=== PATIENT | male | born 1965 | race Caucasian/White ===

== ENCOUNTER 2016-08-10 14:30 | Inpatient (IN) ==
--- NOTE | 2016-08-10 16:31 | Emergency Department Note ---
Disposition Clinical Impression: Exertional dyspnea, Hypoxia, Pedal edema, Sleeps in sitting position due to orthopnea Disposition: Admitted As Inpatient Condition: Fair Referrals: Scout Alicea DO [Primary Care Provider] - Forms: ED Satisfaction Letter Time of Disposition: 18:47 SOB HPI - General Chief Complaint: ED Shortness of Breath/Dyspnea Stated Complaint: Bilateral leg swelling, LENI Time Seen by Provider: 08/10/16 16:15 Source: patient Limitations: no limitations Nursing Notes Reviewed: Yes Vital Signs Reviewed: Yes - History of Present Illness Patient's a 50-year-old male past medical history for sleep apnea and asthma presents with shortness of breath worsening over the past 2 weeks. Patient reports dyspnea on exertion after 8 steps, orthopnea, and bilateral lower extremity edema times one week. Patient has no prior cardiac history but patient admits to being a chronic user of crack and cocaine last used 2 years ago currently on Suboxone treatment by Dr. Jose rand. Patient smokes half pack a day patient admits to having a cough for the past 4 weeks as well that has not gone away. Patient reports pleuritic chest pain and pain in both legs with swelling - Related Data Home Medications Medication Instructions Recorded Confirmed Amlodipine 05/11/15 Atenolol 05/11/15 Atorvastatin 05/11/15 Gabapentin 05/11/15 Nexium 05/11/15 05/11/15 Previous Rx's Medication Instructions Recorded Ibuprofen [Motrin] 800 mg PO Q8HR #30 tablet 05/11/15 TraMADol [Ultram] 50 mg PO QID PRN #20 tablet 05/11/15 Allergies Allergy/AdvReac Type Severity Reaction Status Date / Time No Known Allergies Allergy Verified 05/11/15 18:53 All systems ED: reviewed and negative except as stated. Constitutional: Reports: chills, weakness. Denies: fever ENT ED: Reports: congestion Respiratory: Reports: cough, dyspnea, wheezes. Denies: sputum production Gastrointestinal: Reports: as per HPI. Denies: abdominal pain, nausea, vomiting , diarrhea Past Medical History - Past Medical History Attestation: Yes The following information was validated with the patient. Source: patient, obtained from family Medical history: Reports: hypertension - Social History Smoking Status: Current every day smoker Smokeless Tobacco Status: No Alcohol use: Reports: none Drug use: Reports: none Physical Exam Vital Signs Temperature 98.1 F 08/10/16 14:43 Pulse Rate 59 08/10/16 14:43 Respiratory Rate 18 08/10/16 14:43 Blood Pressure 122/67 08/10/16 14:43 O2 Sat by Pulse Oximetry 94 08/10/16 14:43 Temperature 98.1 F 08/10/16 14:43 Pulse Rate 59 08/10/16 14:43 Respiratory Rate 18 08/10/16 14:43 Blood Pressure 122/67 08/10/16 14:43 O2 Sat by Pulse Oximetry 94 08/10/16 14:43 Oxygen Delivery Oxygen Delivery Room Air -General Appearance: Patient is a 50-year-old very heavyset man sitting up in bed alert and oriented 3 to GCS of 15 in no acute distress, patient sitting comfortably -Neurological exam: Cranial nerves II-12 intact, no focal deficits observed, strength equal 5/5 bilaterally in upper and lower extremities. - Head Head exam: atraumatic, normocephalic, normal inspection - Eye Eye exam: Present: normal appearance, PERRL, EOMI, negative for scleral icterus negative for conjunctival pallor - ENT ENT exam: normal exam, normal oropharynx, mucous membranes moist - Neck Neck exam: Present: normal inspection, full ROM, trachea midline, negative JVD - Chest Chest inspection: Present: Patient has bilateral equal rise and fall of chest wall. Non-tender to palpation. - Respiratory Respiratory exam: Lung sounds distant with diminishing the lower lung martines bilaterally, wheezing and rales heard. Patient has discomfort with deep inspiration Cardiovascular Cardiovascular exam: Present: irregular rate, normal rhythm, normal heart sounds , without murmurs rubs or gallops. - Abdominal Exam Abdominal exam: Present: soft, nondistended, Non-Tender light and deep palpation in all quadrants. Bowel sounds normoactive throughout all 4 quadrants. Negative for hyper or hyperresonance. - Extremities Exam Extremities exam: Present: normal inspection, full ROM - Back Exam Back exam: Present: normal inspection, full ROM. Absent: tenderness, CVA tenderness (R), CVA tenderness (L) - Psychiatric Psychiatric exam: Present: normal affect, normal mood - Skin Skin exam: Present: warm, dry, intact, normal color - General Limitations: no limitations General appearance: alert Course - Reevaluation(s) Reevaluation #1: Patient presents for shortness of breath concerning for CHF, ACS and PR, PE, pneumothorax, pneumonia Plan: CBC, BMP, troponin, BNP, EKG, chest x-ray portable, DuoNeb therapy, aspirin. Time: 16:35 Reevaluation #2: Awaiting a DuoNeb therapy the patient states he started to feel better. Labs show a mild anemia at 12.7 and appears new, and BNP is negative. Other labs unremarkable. Chest x-ray showed no acute cardiopulmonary abnormalities. Time: 17:17 Reevaluation #3: Patient received just finishes a DuoNeb treatment. He states he is breathing clearer. Lung sounds are improved on auscultation. Plan to ambulate patient to see how he does while monitoring the SPO2. Time: 18:28 Additional Reevaluation(s): 1844 hrs: Patient was ambulated, which brought patient's SPO2 down to 85, current plan to admit for worsening exertional dyspnea and hypoxia and lower extremity edema secondary to congestive heart failure new onset which will require further cardiac workup. Patient accepts treatment and plan - Consultations Consultation #1: Accepted for admission by Wanda at 1843 hrs Time: 18:43 Vital Signs Temperature 98.1 F 08/10/16 14:43 Pulse Rate 59 08/10/16 14:43 Respiratory Rate 18 08/10/16 14:43 Blood Pressure 122/67 08/10/16 14:43 O2 Sat by Pulse Oximetry 94 08/10/16 14:43 Temperature 98.1 F 08/10/16 14:43 Pulse Rate 59 08/10/16 16:55 Respiratory Rate 16 08/10/16 16:55 Blood Pressure 113/86 08/10/16 16:55 O2 Sat by Pulse Oximetry 94 08/10/16 14:43 Oxygen Delivery Oxygen Delivery Room Air Shortness of Breath/Dyspnea - Medical Records Medical records reviewed: Yes I reviewed the patient's medical records. - Lab Data Lab results reviewed: Yes I reviewed the patient's lab results. Lab results narrative: Short CBC 08/10/16 Range/Units 16:41 WBC 11.0 (4.3-11.1) K/mcL Hgb 12.7 L (12.9-16.9) g/dL Hct 39.6 (37.5-50.1) % Plt Count 306 (140-400) K/mcL Neutrophils # 8.1 (1.6-8.9) K/mcL BMP 08/10/16 Range/Units 16:41 Sodium 138 (136-145) mEq/L Potassium 3.6 (3.5-4.5) mEq/L Chloride 101 (98-109) mEq/L Carbon Dioxide 27 (19-29) mEq/L BUN 9 (8-26) mg/dL Creatinine 0.98 (0.72-1.25) mg/dL Glucose 136 H (70-99) mg/dL Calcium 9.5 (8.6-10.8) mg/dL Cardiac Enzymes 08/10/16 Range/Units 16:41 Troponin I 0.00 (0-0.03) ng/mL Result diagrams: 08/10/16 16:41 08/10/16 16:41 Lab Results 08/10/16 08/10/16 08/10/16 Range/Units 16:41 16:41 16:41 WBC 11.0 (4.3-11.1) K/mcL RBC 4.43 (4.19-5.50) M/mcL Hgb 12.7 L (12.9-16.9) g/dL Hct 39.6 (37.5-50.1) % MCV 89.4 (83.0-100.0) fL MCH 28.7 (28.0-33.3) pg MCHC 32.1 (31.6-35.5) g/dL RDW 13.1 (11.5-14.5) % Plt Count 306 (140-400) K/mcL MPV 10.0 (9.4-12.4) fL Immature Gran % 0.5 (0-4) % Seg Neutrophils % 72.9 % Lymphocytes % 18.6 % Monocytes % 5.1 % Eosinophils % 2.4 % Basophils % 0.5 % Neutrophils # 8.1 (1.6-8.9) K/mcL Lymphocytes # 2.1 (0.6-4.6) K/mcL Monocytes # 0.6 (0.0-1.3) K/mcL Eosinophils # 0.3 (0.0-0.6) K/mcL Basophils # 0.1 (0.0-0.2) K/mcL Sodium 138 (136-145) mEq/L Potassium 3.6 (3.5-4.5) mEq/L Chloride 101 (98-109) mEq/L Carbon Dioxide 27 (19-29) mEq/L BUN 9 (8-26) mg/dL Creatinine 0.98 (0.72-1.25) mg/dL Est GFR ( Amer) > 60 (> 60) Est GFR (Non-Af Amer) > 60 (> 60) BUN/Creatinine Ratio 9 (6-26) Glucose 136 H (70-99) mg/dL Calculated Osmolality 287 (280-300) Calcium 9.5 (8.6-10.8) mg/dL Troponin I 0.00 (0-0.03) ng/mL B-Natriuretic Peptide (0-100) pg/mL 08/10/16 Range/Units 16:41 WBC (4.3-11.1) K/mcL RBC (4.19-5.50) M/mcL Hgb (12.9-16.9) g/dL Hct (37.5-50.1) % MCV (83.0-100.0) fL MCH (28.0-33.3) pg MCHC (31.6-35.5) g/dL RDW (11.5-14.5) % Plt Count (140-400) K/mcL MPV (9.4-12.4) fL Immature Gran % (0-4) % Seg Neutrophils % % Lymphocytes % % Monocytes % % Eosinophils % % Basophils % % Neutrophils # (1.6-8.9) K/mcL Lymphocytes # (0.6-4.6) K/mcL Monocytes # (0.0-1.3) K/mcL Eosinophils # (0.0-0.6) K/mcL Basophils # (0.0-0.2) K/mcL Sodium (136-145) mEq/L Potassium (3.5-4.5) mEq/L Chloride (98-109) mEq/L Carbon Dioxide (19-29) mEq/L BUN (8-26) mg/dL Creatinine (0.72-1.25) mg/dL Est GFR ( Amer) (> 60) Est GFR (Non-Af Amer) (> 60) BUN/Creatinine Ratio (6-26) Glucose (70-99) mg/dL Calculated Osmolality (280-300) Calcium (8.6-10.8) mg/dL Troponin I (0-0.03) ng/mL B-Natriuretic Peptide 125 H (0-100) pg/mL - Radiology Data Radiology results reviewed: Yes I reviewed the patient's radiology results. Chest X-Ray 08/10/16 15:47 IMPRESSION: No acute findings D/ / Doris Emery MD / Doris Emery MD Interpreting Provider: Doris Emery MD - EKG Data EKG attestation: Yes I reviewed and interpreted this EKG. EKG results narrative: EKG taken for August 2016 at 1620 hrs. shows a sinus rhythm at 59 bpm with no acute ST elevations and depressions in leads. No previous EKG for comparison
[2016-08-10] MEDS ORDERED: Aspirin 81 MG TAB.CHEW PO STA (16:37)
[2016-08-10] MEDS ORDERED: Ipratropium/Albuterol Neb 3 ML IH ONE (16:37)
[2016-08-10 16:49] LABS: Basophils # 0.1 K/mcL (0.0-0.2); Basophils % 0.5 %; Eosinophils # 0.3 K/mcL (0.0-0.6); Eosinophils % 2.4 %; Hematocrit 39.6 % (37.5-50.1); Hemoglobin 12.7 g/dL (12.9-16.9); Immature Granulocytes % 0.5 % (0-4); Lymphocytes # 2.1 K/mcL (0.6-4.6); Lymphocytes % 18.6 %; Mean Corpuscular HGB Conc 32.1 g/dL (31.6-35.5); Mean Corpuscular Hemoglobin 28.7 pg (28.0-33.3); Mean Corpuscular Volume 89.4 fL (83.0-100.0); Monocytes # 0.6 K/mcL (0.0-1.3); Monocytes % 5.1 %; Neutrophils # 8.1 K/mcL (1.6-8.9); Platelet Count 306 K/mcL (140-400); Red Blood Count 4.43 M/mcL (4.19-5.50); Red Cell Distribution Width 13.1 % (11.5-14.5); Segmented Neutrophils % 72.9 %
[2016-08-10 17:02] LABS: BUN/Creatinine Ratio 9 (6-26); Blood Urea Nitrogen 9 mg/dL (8-26); Calcium 9.5 mg/dL (8.6-10.8); Carbon Dioxide 27 mEq/L (19-29); Chloride 101 mEq/L (98-109); Glucose 136 mg/dL (70-99); Osmolality,Calculated 287 (280-300); Potassium 3.6 mEq/L (3.5-4.5); Sodium 138 mEq/L (136-145); eGFR For African Americans > 60 (> 60); eGFR For Non-African Americans > 60 (> 60)
--- NOTE | 2016-08-10 18:49 | Emergency Department Note ---
START Narrative - START START: I, Tono Cooper, examined this patient and my medical decision-making was reviewed with the [employer]/PA/Advanced Practice Nurse/Resident Physician. I agree with the documented findings, disposition and treatment plan as described except to the extent set forth below. 50-year-old male presents with increasing dyspnea on exertion and weight gain over the past month. Patient states he is unable to lay flat, using 4 pillows at night. Patient is unable to walk more than 8-10 feet without becoming short of breath. 2 months ago, he was able to walk around his block at home with his . Patient denies chest pain, diaphoresis, palpitations. No history of congestive heart failure in the past. He has swelling in the bilateral lower extremities with +1-2 edema. Patient does not take Lasix or other medications for fluid overload. I ambulated the patient in the emergency department and his O2 saturation dropped to 85%. Patient will be admitted to the hospital for further care and evaluation.
[2016-08-10] MEDS ORDERED: Furosemide 20 MG/2 ML VIAL IVP ONE (18:50)
[2016-08-11] MEDS ORDERED: Naloxone 0.4 MG/ML INJ IVP PRN (01:05)
[2016-08-11] MEDS ORDERED: Albuterol 2.5 MG/3 ML NEBULIZER IH PRN (01:05)
--- NOTE | 2016-08-11 01:19 | Internal Med History&Physical ---
Date of Encounter: 08/11/16 Time of Encounter: 01:14 Assessment and Plan (1) Asthma exacerbation Current visit: Yes Status: Acute 1. Will treat with steroids, antibiotics, and aerosols. 2. Will use oxygen as needed. 3. Will check for Influenza as well. 4. Smoking cessation well advised. (2) Right heart failure Current visit: Yes Status: Suspected 1. He appears to have CHF on exam, but other than wheezing, his lungs are clear. His wheezing may actually be due to CHF. However, given his h/o untreated TIFFANIE, smoking, I suspect he may have RHF. 2. Will obtain ECHO. 3. Will gently diurese him. 4. Patient may need cardiology consult if work-up negative. (3) Exertional dyspnea Current visit: Yes Status: Acute 1. This could be due to asthma exacerbation, but given the 30# weight gain, I suspect CHF (RHF vs LHF). 2. Will treat with diuretics and proceed with cardiac work-up. (4) DVT prophylaxis Current visit: Yes Status: Acute 1. Heparin SQ. Internal Medicine - H&P: HPI Chief complaint: SOB; weight gain; cough Admitted From: Emergency Dept Plans for Post Hospital Care: Home History of present illness: Mr. Cunningham is a 50 year old male who presents to the ER tonight with a history of lower extremity edema, increasing abdominal girth, shortness of breath, and dyspnea on exertion. Workup in the ER was negative, but there were clinical concerns for CHF and the patient was subsequently admitted to the hospitalist service. On my assessment of the patient, he states he has had about a 3 week history of cough, chest congestion, wheezing, shortness breath, lower extremity edema, and increasing abdominal girth. He states he's gained over 30 pounds in the last month. He states he gets profoundly short of breath after taking 10-12 steps by ambulation. He also complains of orthopnea and frequent paroxysmal internal dyspnea. He denies any chest pain. He has had some low-grade fevers and chills. He denies any vomiting or diarrhea. Of note, patient states he has a history of sleep apnea and has not worn his CPAP mask in over 10 years. He also has a history of asthma and has been using his inhaler frequently over the last few weeks. Despite his asthma, he continues to smoke, however. Patient also has a history of illicit drug use in the past. He has been "clean " for the last 2 years. He is maintained on Suboxone. He has used cocaine and opiates in the past. He denies ever "shooting up" any drugs but he did ingest and snort cocaine. Past Med Surg Social Fam HX - Past Medical History Attestation: Yes The following information was validated with the patient. Source: patient, old records reviewed Medical history: hypertension, other (h/o illicit drug use -- clean for 2 years ; h/o sleep apnea -- does not wear CPAP) Psychiatric history: no psych history - Past Surgical History Surgical History: other (h/o rectal surgery) - Social History Smoking Status: Current every day smoker Packs per day: 1/2 Smokeless Tobacco Status: No Alcohol use: none Drug use: cocaine (quit 2 yeasr ago) Current living situation: Home, With Family Activity Level: Uses cane/walker Recent Out of Country Travel Within the Last 8 Weeks: No - Family History Mother Living Status: Still Living Hx Family Cardiac Disorders: No Hx Family Respiratory Disorders: No Father Living Status: Hx Family Cardiac Disorders: Yes Hx Family Respiratory Disorders: Yes Internal Medicine - H&P: Meds Albuterol Sulfate [Proair Hfa] 2 puff IH Q4H PRN 08/10/16 [History] Amlodipine Besylate 10 mg PO DAILY 08/10/16 [History] Atenolol 100 mg PO DAILY 08/10/16 [History] Atorvastatin [Lipitor] 40 mg PO HS 08/10/16 [History] Buprenorphine HCl/Naloxone HCl [Suboxone 8 mg-2 mg Sl Film] 0.75 each SL DAILY 08/10/16 [History] Gabapentin [Neurontin] 800 mg PO TID 08/10/16 [History] Hydrochlorothiazide 25 mg PO DAILY 08/10/16 [History] Ibuprofen [Motrin] 800 mg PO TID PRN 08/10/16 [History] Lisinopril [Zestril] 40 mg PO DAILY 08/10/16 [History] Omeprazole [PriLOSEC] 40 mg PO DAILY 08/10/16 [History] SUMAtriptan [Imitrex] 6 mg SQ DAILY PRN 08/10/16 [History] Allergies No Known Allergies Allergy (Verified 05/11/15 18:53) - Constitutional Constitutional: chills, fever(s), no night sweats - EENT Eyes: no blurry vision, no change in vision Ears: no ear pain, no tinnitus Nose, mouth and throat: nasal congestion, no post-nasal drip, no sinus pressure , no sore throat - Cardiovascular Cardiovascular ROS IM: dyspnea, dyspnea on exertion, edema, orthopnea, paroxysmal nocturnal dyspnea, no chest pain, no diaphoresis, no palpitations, no syncope - Respiratory Respiratory: cough, dyspnea, dyspnea on exertion, wheezing, chest congestion, excessive phlegm production, no hemoptysis, no pain on inspiration, no change in phlegm color, no pain with cough - Gastrointestinal Gastrointestinal: bloating, no abdominal pain, no diarrhea, no hematemesis, no hematochezia, no melena, no nausea, no vomiting - Genitourinary Genitourinary ROS male: no dysuria, no flank pain, no hematuria - Musculoskeletal Musculoskeletal ROS IM: arthralgias, back pain, limited range of motion (left hip) - Integumentary Integumentary IM: no new lesions, no rash - Neurological Neurological ROS: no dizziness, no focal weakness, no frequent falls, no headache(s) - Psychiatric Psychiatric: no anxiety, no depression - Endocrine Endocrine IM: no cold intolerance, no heat intolerance, no polydipsia, no polyuria - Hematologic/Lymphatic Hematologic/Lymphatic: no easy bruising, no lymphadenopathy - Allergic/Immunologic Allergic/Immunologic: wheezing, no uticaria, no GI upset with certain foods - Constitutional Vitals: Temp Pulse Resp BP Pulse Ox 97.2 F L 66 16 135/70 93 08/10/16 23:10 08/10/16 23:10 08/10/16 23:10 08/10/16 23:10 08/10/16 23:10 General appearance: Present: cooperative, A&O X 3, pleasant, no acute distress, obese, answers questions appropriately - Head Head exam: Present: atraumatic, normal inspection - Expanded Head Exam Head exam expanded: Absent: abrasion, contusion, general tenderness - Eye Eye exam: Present: EOMI, normal appearance, PERRL. Absent: scleral icterus Pupils: Present: normal accommodation - ENT ENT exam: Present: mucous membranes dry, normal exam, normal oropharynx - Neck Neck exam general surgery: Present: full ROM, supple. Absent: lymphadenopathy, tenderness, thyromegaly - Respiratory Respiratory exam: Present: prolonged expiratory phase, respiratory distress ( mild), rhonchi, wheezes. Absent: accessory muscle use, chest wall tenderness, rales, tachypnea - Cardiovascular Cardiovascular exam: Present: bradycardia (HR 50's), RRR, +S1, +S2. Absent: diastolic murmur, JVD, systolic murmur - GI/Abdominal GI/Abdominal exam: Present: distended, normal bowel sounds, soft, no peritoneal signs. Absent: guarding, hepatomegaly, mass, rebound, splenomegaly, tenderness - Extremities Exam Extremities exam: Present: pedal edema (2+), warm. Absent: calf tenderness, joint swelling, tenderness - Back Exam Back exam: Present: normal inspection. Absent: CVA tenderness (L), CVA tenderness (R) - Neurological Exam Neurological exam: Present: alert, CN II-XII intact, oriented X3, no focal deficits - Psychiatric Psychiatric exam: Present: normal affect, normal mood - Skin Skin exam: Present: dry, warm. Absent: rash Internal Med - H&P Results - Labs CBC & Chem 7: 08/10/16 16:41 08/10/16 16:41 - EKG Data -: EKG Interpreted by Myself (sinus bradycardia; no acute changes) - Diagnostic Studies Chest x-ray Status: image reviewed by me (lungs are clear; no acute findings -- report reviewed as well)
[2016-08-11] MEDS: Ipratropium/Albuterol Neb 3 ML IH SCH ×4 (04:27→22:40)
[2016-08-11] MEDS: *HR* Heparin 5,000 UNIT/ML VIAL SQ SCH ×4 (04:54→21:16)
[2016-08-11] MEDS: Furosemide 20 MG/2 ML VIAL IVP SCH ×3 (05:33→21:17)
[2016-08-11 07:17] LABS: Alanine Aminotransferase 10 Units/L (0-55); Albumin 3.3 g/dL (3.5-5.0); Albumin/Globulin Ratio 0.9 (1.1-2.2); Alkaline Phosphatase 63 Units/L (38-126); Aspartate Amino Transferase 11 Units/L (5-34); BUN/Creatinine Ratio 10 (6-26); Bilirubin,Total 0.6 mg/dL (0.2-1.2); Blood Urea Nitrogen 11 mg/dL (8-26); Calcium 9.1 mg/dL (8.6-10.8); Carbon Dioxide 32 mEq/L (19-29); Chloride 100 mEq/L (98-109); Chol/HDL Ratio 3.4 (0-4.9); Cholesterol 114 mg/dL (< 200); Globulin 3.5 g/dL (2.4-3.5); Glucose 95 mg/dL (70-99); HDL Cholesterol 34 mg/dL (40-59); LDL Cholesterol,Calculated 66 mg/dL (0-99); Magnesium 1.8 mg/dL (1.6-2.6); Osmolality,Calculated 291 (280-300); Potassium 3.9 mEq/L (3.5-4.5); Sodium 141 mEq/L (136-145); Total Protein 6.8 g/dL (6.0-8.3); Triglycerides 68 mg/dL (< 150); eGFR For African Americans > 60 (> 60); eGFR For Non-African Americans > 60 (> 60)
[2016-08-11 07:26] LABS: Basophils # 0.1 K/mcL (0.0-0.2); Basophils % 0.4 %; Eosinophils # 0.2 K/mcL (0.0-0.6); Eosinophils % 1.5 %; Hematocrit 37.1 % (37.5-50.1); Hemoglobin 11.9 g/dL (12.9-16.9); Immature Granulocytes % 0.3 % (0-4); Lymphocytes # 2.9 K/mcL (0.6-4.6); Lymphocytes % 20.2 %; Mean Corpuscular HGB Conc 32.1 g/dL (31.6-35.5); Mean Corpuscular Hemoglobin 28.7 pg (28.0-33.3); Mean Corpuscular Volume 89.6 fL (83.0-100.0); Mean Platelet Volume 10.3 fL (9.4-12.4); Monocytes # 0.9 K/mcL (0.0-1.3); Monocytes % 6.4 %; Platelet Count 308 K/mcL (140-400); Red Blood Count 4.14 M/mcL (4.19-5.50); Segmented Neutrophils % 71.2 %
[2016-08-11 07:32] LABS: 2009 H1N1 PCR NOT DETECTED (Not Detect); Influenza A PCR Negative (Negative); Influenza B PCR Negative (Negative)
[2016-08-11 07:38] LABS: Thyroid Stimulating Hormone 1.719 mcIU/mL (0.350-4.840)
[2016-08-11] MEDS: methylPREDNISolone 125 MG/2 ML VIAL IVP SCH ×3 (08:59→23:37)
[2016-08-11] MEDS: Levofloxacin 750 MG/150 ML 750 MG/150 ML BAG IVPB SCH (09:00)
[2016-08-11] MEDS: Gabapentin 400 MG CAPSULE PO SCH ×3 (09:00→21:16)
[2016-08-11] MEDS: Lisinopril 20 MG TABLET PO SCH (09:01)
[2016-08-11] MEDS: amLODIPine 5 MG TABLET PO SCH (09:02)
[2016-08-11] MEDS: Acetaminophen 325 MG TABLET PO PRN (09:02)
[2016-08-11] MEDS: (Suboxone 8 Mg-2 Mg SL) SL SCH (09:40)
--- NOTE | 2016-08-11 13:26 | ECHO - Doppler Report ---
Echocardiogram Name: Gilbert Cunningham Date of Study: 08/11/2016 Date: 1965 Ht: 74.0 in Medical Record#: [id number] Age: 50 Wt: 280.0 lb Gender: Male BSA: 2.51 Order #: [id number] Location: [facility] Room #: [id number] Reading Physician: Asha Hill DO Power Generation Engineer: Yusuf Kapoor RDCS Ordering Physician: Zachary Herrera MD Primary Physician: Scout Alicea DO Indications: Edema, Shortness of breath Impressions: LVEF 60%. Normal left ventricular size and systolic function. Normal diastolic function of the left ventricle. Normal right ventricular size and function. No significant valvular dysfunction. No pulmonary hypertension. Left Ventricular Wall Motion: Rest Echo Findings All wall segments showed normal motion. Findings: Study Quality * Technically adequate exam. ECG Findings * Sinus bradycardia. Left Ventricle * LVEF 60%. * Normal LV chamber size, wall thickness and function. * Normal left ventricular diastolic function. Left Atrium * Normal left atrial size. Aortic Valve * No aortic regurgitation. * Aortic valve not well visualized. * No aortic stenosis. Mitral Valve * Normal mitral valve structure. * No mitral stenosis. * Trace mitral regurgitation. Tricuspid Valve * Tricuspid valve not well visualized. * Trace tricuspid regurgitation. * Estimated RA pressure is 3 mmHg. * Estimated RVSP is 19 mmHg. * No pulmonary hypertension. Pulmonic Valve * Pulmonic valve is not well visualized. * No pulmonic stenosis. * No pulmonic regurgitation. Pulmonary Artery * Pulmonary artery not well visualized. Right Atrium * Normal right atrial size. Pericardium * There is no pericardial effusion present. Right Ventricle * Normal right ventricular structure and function. Interatrial Septum * No evidence of PFO by color Doppler. IVC * Normal IVC dimensions and inspiratory collapse. Aorta * Normally sized aortic root. History Hypertension Hypercholesteremia History of Smoking Years 35 Packs 1 Measurements: BP: 106/ 56 2D Normal Values IVSd: .88 cm 0.6 - 1.0 cm LVIDd: 5.50 cm 3.7 - 5.6 cm LVPWd: .90 cm 0.6 - 1.1 cm LVIDs: 3.49 cm 1.5 - 3.6 cm AO: 2.60 cm < 4.0 cm LA: 4.30 cm 2.0 - 4.0cm %FS: 39.70 cm >25 % LA volume: 73 Mitral Valve Peak E:.98 m/sec Peak A:.65 m/sec E/A Ratio:1.5 Tricuspid Valve TV Regurg Peak Grad: 16.00mmHg TV Regurg Peak Greg: 2.01m/sec Updated by Asha Hill on 08/11/2016 1:19:48 PM electronically signed on 08/11/2016 1:20:45 PM with status of Final Wall Motion Pool: 1=Normal, 2=Hypokinesis, 3=Akinesis, 4=Dyskinesis, 5=Aneurysmal, 6=Hyperkinetic, X=Not Visualized (Blank)=Missing
--- NOTE | 2016-08-11 17:04 | Event Note ---
Date of Encounter: 08/11/16 Time of Encounter: 09:30 Patient seen and examined. On examination, patient sitting upright in bed conversing with his girlfriend. Patient sitting is still much more short of breath than usual. He states his legs are back down to where they usually are, 2+ pitting edema bilaterally. He is endorsing a normal appetite. His girlfriend in him state that he has gained 30 pounds over last month and he states that he now has to sleep sitting upright. Chest x-ray negative. Flu swab negative. Continue Levaquin. Regarding his Suboxone, I called pharmacy as we only have Subutex however regulatory guidelines do not allow for me to write for Subutex, his will bring in his home Suboxone. Echocardiogram pending. We will continue to diurese. Regarding his noncompliance with CPAP, he was diagnosed with TIFFANIE 10 years ago, he states that he is now ready to be compliant with his CPAP given that he has been unable to sleep without sitting upright. Will attempt to qualify him while inpatient. ITS Impressions Chest X-Ray 08/10/16 15:47 IMPRESSION: No acute findings D/ / Doris Emery MD / Doris Emery MD Interpreting Provider: Doris Emery MD
--- NOTE | 2016-08-11 17:36 | Electrocardiograph Report ---
[address] [place] [address] Test Date: 2016-08-10 Pat Name: Gilbert Cunningham Department: 103 Room: 3B Gender: M Molder Feeder: ERIS : 1965 Requested By: Hoang Cordova Order Number: [id number] Reading MD: Hoang Wolff MD Measurements Intervals [place] Rate: 59 P: 6 [place]: 179 QRS: 30 QRSD: 89 T: 21 QT: 395 QTc: 394 Interpretive Statements SINUS BRADYCARDIA Electronically Signed On 08-11-2016 17:35:08 EDT by Hoang Wolff MD
[2016-08-12] MEDS: Ipratropium/Albuterol Neb 3 ML IH SCH ×4 (04:32→21:45)
[2016-08-12 05:23] LABS: Hemoglobin A1C 5.7 %
[2016-08-12] MEDS: *HR* Heparin 5,000 UNIT/ML VIAL SQ SCH ×3 (06:28→21:33)
[2016-08-12] MEDS: methylPREDNISolone 125 MG/2 ML VIAL IVP SCH ×2 (08:47→15:11)
[2016-08-12] MEDS: amLODIPine 5 MG TABLET PO SCH (08:48)
[2016-08-12] MEDS: Levofloxacin 750 MG/150 ML 750 MG/150 ML BAG IVPB SCH (08:48)
[2016-08-12] MEDS: Gabapentin 400 MG CAPSULE PO SCH ×3 (08:48→21:33)
[2016-08-12] MEDS: Furosemide 20 MG/2 ML VIAL IVP SCH ×2 (08:48→21:33)
[2016-08-12] MEDS: Lisinopril 20 MG TABLET PO SCH (08:48)
[2016-08-12] MEDS: (Suboxone 8 Mg-2 Mg SL) SL SCH (08:49)
--- NOTE | 2016-08-12 10:59 | Cardiology Consult Note ---
Date of Encounter: 08/12/16 Time of Encounter: 10:05 Assessment and Plan (1) Pedal edema Current Visit: Yes Status: Acute Patient presents with compliant of increased edema and weight gain Weight gain not substantiated in review of records Per eCW, patient weighted 283 lbs in April, and 296 in July, ECHO 08/11/16 revealed LVEF 60%, normal LV size/function, normal LV diastolic function, normal RV size/function, no valvular dysfunction, no pulm HTN CXR showed cardiomegaly without acute process EKG NSR On exam today patient has 1+ lower extremity edema, decreased from 2+ edema on admission I suspect edema may be secondary to venous insufficiency, high-salt diet, morbid obesity, untreated sleep apnea Recommend lifestyle modification including: low-salt diet, 2L daily fluid restriction, increased exercise, weight loss, compliance with CPAP, smoking cessation (2) Exertional dyspnea Current Visit: Yes Status: Acute Likely secondary to underlying morbid obesity, physical deconditioning, probable COPD Given CXR without pulmonary effusion and normal ECHO, heart failure is unlikely explanation Patient states that his dyspnea is improved today following treatment with steroids, antibiotics, and nebulizers Patient negative for Influenza Smoking cessation strongly advised Recommend outpatient follow-up PFTs and evaluation for COPD (3) Hypertension Current Visit: Yes Status: Acute Stable at this time Continue current medication Closely monitor Qualifiers: Hypertension type: essential hypertension Qualified Code(s): I10 - Essential (primary) hypertension (4) Obstructive sleep apnea Current Visit: Yes Status: Acute Patient with long history of sleep apnea with 10 year history non-compliance with CPAP Suspect that TIFFANIE may be etiology of patient's paroxysmal nocturnal dyspnea Recommend repeat sleep study with CPAP titration Discussion w patient/family: The assessment and plan as outlined above was discussed with the patient and/or family members who expressed understanding and agreement. All questions were answered. Thank you for involving us in the care of your patient. Please call with any questions. History of Present Illness Consult date: 08/12/16 Requesting physician: Janette Murray Consult reason: SOB, Orthopnea, Pedal Edema Chief complaint: Dyspnea History of present illness: Mr. Cunningham is a 50 year old male who presented to [facility] two days ago with complaint of dyspnea, orthopnea, and pedal edema. Patient admits to 1 month history of increased dyspnea on exertion. He states that he is unable to walk a few steps at home without becoming winded. Patient states that he also has had increased swelling to legs and arm. Patient mentions that he has had rapid weight gain in the last month. However, review of records on eCW indicates that he weighed 283 lbs in April, and weighed 296 in July,. Patient states that he has previously had a stress test greater than 10 years ago, which was normal. Patient admits that he continues to smoke. Admits 35 pack year smoking history (35years x 1ppd). He used cocaine until 2 years ago, when he entered treatment with suboxone. He states that his father had an [place] and CABG. His mother has HTN, DM, and may have HLD. Patient states that he does not exercise. He also admits having a history of TIFFANIE, for which he has been non-compliant with CPAP for the last 10 years. I discussed at length the measures that Mr. Cunningham will need to take to improve his health. I encouraged smoking cessation, compliance with repeat sleep study/CPAP compliance, and exercise of 30 minutes per day. Past Med Surg Social Fam HX - Past Medical History Medical history: arthritis (bilateral hips), asthma, GERD, hepatitis, hyperlipidemia, hypertension, other (h/o illicit drug use (cocaine, clean for 2 years); TIFFANIE (does not wear CPAP); Hypogonadism; Sexual Dysfunction; Hiatal hernia; Irritable bowel syndrome; DDD L4-5; Gout) Psychiatric history: no psych history, anxiety, depression, PTSD - Past Surgical History Surgical History: other (h/o rectal surgery) - Social History Smoking Status: Current every day smoker Packs per day: 1/2 Smokeless Tobacco Status: No Alcohol use: none Drug use: cocaine (quit 2 yeasr ago) - Family History Mother History Unknown: Yes Living Status: Still Living Hx Family Cardiac Disorders: No Hx Family Respiratory Disorders: No Father History Unknown: Yes Living Status: Hx Family Cardiac Disorders: Yes Hx Family Respiratory Disorders: Yes Medications and Allergies Albuterol Sulfate [Proair Hfa] 2 puff IH Q4H PRN 08/10/16 [History] Amlodipine Besylate 10 mg PO DAILY 08/10/16 [History] Atenolol 100 mg PO DAILY 08/10/16 [History] Atorvastatin [Lipitor] 40 mg PO HS 08/10/16 [History] Buprenorphine HCl/Naloxone HCl [Suboxone 8 mg-2 mg Sl Film] 0.75 each SL DAILY 08/10/16 [History] Gabapentin [Neurontin] 800 mg PO TID 08/10/16 [History] Hydrochlorothiazide 25 mg PO DAILY 08/10/16 [History] Ibuprofen [Motrin] 800 mg PO TID PRN 08/10/16 [History] Lisinopril [Zestril] 40 mg PO DAILY 08/10/16 [History] Omeprazole [PriLOSEC] 40 mg PO DAILY 08/10/16 [History] SUMAtriptan [Imitrex] 6 mg SQ DAILY PRN 08/10/16 [History] Allergies No Known Allergies Allergy (Verified 05/11/15 18:53) All Systems Review: A 10-system review of systems was performed and is negative for pertinent findings except as documented above in the HPI. Physical Examination Vital Signs, Last 4 Hours Temp Pulse Resp BP Pulse Ox 08/12/16 10:40 20 93 08/12/16 08:45 94 08/12/16 07:19 98.0 F 73 14 130/67 94 General: Conversant, No Apparent Distress HEENT: Atraumatic, Normocephaly, Mucus Membranes Moist Neck: No JVD, Normal carotid pulses Cardiac: Reg Rate and Rhythm, Normal S1 and S2, No Murmur Lungs: No Wheeze, Rales, Rhonchi, Other (Diminished breath sounds; Prolonged expiratory phase) Neuro: Alert and responsive, No focal deficits noted Abdomen: Soft, Non-Tender Skin: No rashes noted on visualized skin Musculoskeletal: No Chest Wall Tenderness Extremities: No Clubbing, No Cyanosis, Normal Pulses, Other (1+ pitting edema to bilateral lower extremities) Results 08/11/16 07:00 08/11/16 07:00 - Imaging and Cardiology Chest Xray: report reviewed, image reviewed Echo: report reviewed - EKG Interpretation EKG results cardiology: personally reviewed, normal ECG, sinus rhythm Consult Discharge Plan - Plan Referrals: Scout Alicea DO [Primary Care Provider] -
[2016-08-12 11:17] LABS: Bilirubin,Urine Negative (Negative); Blood,Urine Negative (Negative); Clarity,Urine Clear (Clear); Color,Urine Yellow (Yellow); Glucose,Urine (UA) Normal (Normal); Ketones,Urine Negative (Negative); Leukocyte Esterase,Urine Negative (Negative); Nitrite,Urine Negative (Negative); Protein,Urine Negative (Neg-Trace); Specific Gravity,Urine 1.011 (1.010-1.025); Urobilinogen,Urine Normal (Normal)
--- NOTE | 2016-08-12 14:32 | Internal Med Progress Note ---
Date of Encounter: 08/12/16 Time of Encounter: 09:30 - Assessment and plan (1) Exertional dyspnea Current Visit: Yes Status: Acute Assessment and plan: Unclear causation of the patient's symptoms of weight gain, pedal edema, increased abdominal girth, and orthopnea. Her failure has been ruled out. Likely multifactorial including severe TIFFANIE noncompliant with CPAP. We will attempt CPAP initiation during this admission. Patient is also obese, sedentary and smokes. Chest x-ray negative. We will continue to diurese. ITS Impressions Chest X-Ray 08/10/16 15:47 IMPRESSION: No acute findings D/ / Doris Emery MD / Doris Emery MD Interpreting Provider: Doris Emery MD Echocardiogram impressions: LVEF 60%. Normal left ventricular size and systolic function. Normal diastolic function of the left ventricle. Normal rectal ventricular size and function. No significant valvular dysfunction. No pulmonary hypertension. (2) COPD (chronic obstructive pulmonary disease) Current Visit: Yes Status: Suspected Assessment and plan: Patient is a long-time smoker and does not appear to have been officially diagnosed with COPD. Recommend outpatient PFTs. (3) Asthma exacerbation Current Visit: Yes Status: Suspected (4) Hypoxia Current Visit: Yes Status: Resolved Assessment and plan: Patient is tolerating room air well. On examination, lungs clear to auscultation bilaterally. (5) Pedal edema Current Visit: Yes Status: Acute Assessment and plan: Improving since admission. We will continue to diurese. (6) Cocaine abuse in remission Current Visit: Yes Status: Chronic Assessment and plan: Former cocaine abuse, on Suboxone 2 years. No use in 2 years according to the patient. OAR[facility] report checks out. (7) Sleeps in sitting position due to orthopnea Current Visit: Yes Status: Acute Assessment and plan: Worsened over the past month. Sleep study tonight. (8) Right heart failure Current Visit: Yes Status: Ruled-out Assessment and plan: Ruled out with normal echocardiogram. Cardiology brought on board who also supervised the patient's clinical picture is not congruent with heart failure. (9) DVT prophylaxis Current Visit: Yes Status: Acute Assessment and plan: Subcutaneous heparin (10) Hypertension Current Visit: Yes Status: Chronic Assessment and plan: At home, patient is on lisinopril 40 mg daily, amlodipine 10 mg daily, HCTZ 25 mg daily, and atenolol 100 mg daily. Currently controlled with all of these medications is except for HCTZ which has been held. Qualifiers: Hypertension type: essential hypertension Qualified Code(s): I10 - Essential (primary) hypertension (11) Obstructive sleep apnea Current Visit: Yes Status: Chronic Assessment and plan: We will attempt to qualify him for CPAP tonight. His states that he has to sleep sitting upright and states that she has to "poke him" all night so that he starts breathing. - Subjective Interval history: Patient seen and examined. On examination, patient is sitting upright on the side of his bed. Patient stating his shortness of breath has improved and states the swelling in his legs went down a little bit. He denies pain at this time. - Constitutional Vitals: Temp Pulse Resp BP Pulse Ox 97.7 F 66 16 130/76 93 08/12/16 12:15 08/12/16 12:15 08/12/16 12:15 08/12/16 12:15 08/12/16 12:15 General appearance: Present: cooperative, A&O X 3, pleasant, no acute distress, obese, answers questions appropriately - Head Head exam: Present: atraumatic, normocephalic - Eye Eye exam: Present: PERRL, conjuntiva pink, sclera anicteric Pupils: Present: PERRL - Neck Neck exam general surgery: Present: supple, trachea midline. Absent: lymphadenopathy - Respiratory Respiratory exam: Present: CTAB. Absent: accessory muscle use, rales, respiratory distress, rhonchi, wheezes - Cardiovascular Cardiovascular exam: Present: RRR, +S1, +S2. Absent: diastolic murmur, gallop, rubs, systolic murmur - GI/Abdominal GI/Abdominal exam: Present: distended, normal bowel sounds, soft, no peritoneal signs. Absent: tenderness - Extremities Exam Extremities exam: Present: pedal edema (1+), warm, radial pulses palpable and symetrical. Absent: calf tenderness, cyanotic - Neurological Exam Neurological exam: Present: alert, CN II-XII intact, normal gait, oriented X3, no focal deficits, strengths equal and symetr throughout. Absent: pronater drift, facial droop, speech deficit - Skin Skin exam: Present: dry, intact, normal color, warm Internal Medicine: Result - Labs CBC & Chem 7: 08/11/16 07:00 08/11/16 07:00 Labs: Urine 08/12/16 Range/Units 11:00 Urine Color Yellow (Yellow) Urine Clarity Clear (Clear) Urine pH 7.0 (5.0-8.0) pH Units Ur Specific Watkins 1.011 (1.010-1.025) Urine Protein Negative (Neg-Trace) mg/dL Urine Glucose (UA) Normal (Normal) mg/dL Consult Discharge Plan - Plan Referrals: Scout Alicea DO [Primary Care Provider] -
[2016-08-13] MEDS: methylPREDNISolone 125 MG/2 ML VIAL IVP SCH ×2 (00:16→09:19)
[2016-08-13] MEDS: Ipratropium/Albuterol Neb 3 ML IH SCH ×2 (05:12→10:41)
[2016-08-13] MEDS: *HR* Heparin 5,000 UNIT/ML VIAL SQ SCH (06:14)
[2016-08-13] MEDS: Acetaminophen 325 MG TABLET PO PRN (06:37)
[2016-08-13] MEDS: Levofloxacin 750 MG/150 ML 750 MG/150 ML BAG IVPB SCH (09:18)
[2016-08-13] MEDS: Lisinopril 20 MG TABLET PO SCH (09:19)
[2016-08-13] MEDS: Furosemide 20 MG/2 ML VIAL IVP SCH (09:19)
[2016-08-13] MEDS: amLODIPine 5 MG TABLET PO SCH (09:20)
[2016-08-13] MEDS: (Suboxone 8 Mg-2 Mg SL) SL SCH (09:20)
[2016-08-13] MEDS: Gabapentin 400 MG CAPSULE PO SCH (09:20)
[2016-08-13 10:50] VITALS: BP 117/72
--- NOTE | 2016-08-13 11:15 | Discharge Summary ---
Date of Encounter: 08/13/16 Time of Encounter: 09:45 - Discharge Diagnosis (1) Exertional dyspnea Priority: Primary Status: Acute Comments: Unclear causation of the patient's symptoms of weight gain, pedal edema, increased abdominal girth, and orthopnea. Her failure has been ruled out. Likely multifactorial including severe TIFFANIE noncompliant with CPAP. We attempted to qualify him for BiPap but he did not qualify. (2) COPD (chronic obstructive pulmonary disease) Priority: Primary Status: Suspected Comments: Patient is a long-time smoker and does not appear to have been officially diagnosed with COPD. Recommend outpatient PFTs. He denies shortness of breath above his normal day of discharge. (3) Asthma exacerbation Priority: Primary Status: Resolved (4) Hypoxia Priority: Primary Status: Resolved (5) Pedal edema Priority: Primary Status: Resolved (6) Cocaine abuse in remission Priority: Secondary Status: Chronic Comments: States he has been on Suboxone for 2 years and has not used cocaine in 2 years (7) Sleeps in sitting position due to orthopnea Priority: Primary Status: Acute Comments: Did not qualify for BiPAP (8) Right heart failure Priority: Primary Status: Ruled-out (9) DVT prophylaxis Priority: Primary Status: Acute Comments: Subcutaneous heparin while admitted (10) Hypertension Priority: Secondary Status: Chronic Comments: At home, patient is on lisinopril 40 mg daily, amlodipine 10 mg daily, HCTZ 25 mg daily, and atenolol 100 mg daily. Currently controlled with all of these medications is except for HCTZ which was held during this admission. Qualifiers: Hypertension type: essential hypertension Qualified Code(s): I10 - Essential (primary) hypertension (11) Obstructive sleep apnea Priority: Secondary Status: Ruled-out - Discharge Medications Prescriptions: Furosemide [Lasix] 20 mg PO BID #60 tablet Levofloxacin 750 mg PO DAILY #5 tablet PredniSONE 40 mg PO DAILY #10 tablet Home Medications: Albuterol Sulfate [Proair Hfa] 2 puff IH Q4H PRN 08/10/16 [History] Atenolol 100 mg PO DAILY 08/10/16 [History] Atorvastatin [Lipitor] 40 mg PO HS 08/10/16 [History] Buprenorphine HCl/Naloxone HCl [Suboxone 8 mg-2 mg Sl Film] 0.75 each SL DAILY 08/10/16 [History] Gabapentin [Neurontin] 800 mg PO TID 08/10/16 [History] Ibuprofen [Motrin] 800 mg PO TID PRN 08/10/16 [History] Lisinopril [Zestril] 40 mg PO DAILY 08/10/16 [History] Omeprazole [PriLOSEC] 40 mg PO DAILY 08/10/16 [History] SUMAtriptan [Imitrex] 6 mg SQ DAILY PRN 08/10/16 [History] Furosemide [Lasix] 20 mg PO BID #60 tablet 08/13/16 [Rx] Levofloxacin 750 mg PO DAILY #5 tablet 08/13/16 [Rx] PredniSONE 40 mg PO DAILY #10 tablet 08/13/16 [Rx] Allergies/Adverse Reactions: Allergies No Known Allergies Allergy (Verified 05/11/15 18:53) Date of admission: 08/11/16 17:09 Primary care physician: Scout Alicea DO Consults: 08/12/16 09:15 Consult to Cardiology [CONS] Routine Comment: Consulting Provider: Cardiology Leelee Reason for Consult: increased CAMACHO, gained 30# in one month, increased pedal edema, has to sleep sitting upright. Noncompliant with CPAP for TIFFANIE. Echo normal. Ruling out other causes... Right heart cath indicated? Please eval and advise Time Notified: 09:16 Call Completed: Yes Discharging clinician: Janette Murray Anticipated date of discharge: 08/13/16 - Patient Status Disposition: Home, Self-Care Condition: Fair Functional capacity at discharge: independent ambulation Overall status at discharge: patient is back to baseline - Discharge Instructions Follow Up With: Scout Alicea DO [Primary Care Provider] - Additional Instructions: Follow-up with primary care provider in one to 2 weeks, check blood pressure daily and keep a log - Diet and Activity Activity: increase activity as tolerated Diet: low fat, low cholesterol (fluid restriction 2L per day), low salt diet Hospital course: Mr. Cunningham is a 50 year old male with past medical history of tobacco abuse, sleep apnea, illicit drug use of cocaine, states he has been clean for 2 years on Suboxone, hypertension. Patient presented to the emergency department chief complaint lower extremity edema, increasing abdominal girth, shortness of breath , and dyspnea on exertion over the past month. Patient stating he has been coughing with chest congestion and wheezing and states that he has gained 30 pounds over the last month. Patient also endorsed orthopnea and frequent paroxysmal dyspnea. Patient stating he has sleep apnea but has not worn his CPAP in over 10 years. Workup in the emergency department unremarkable except for initial hypoxia. Chest x-ray negative. Patient was admitted to the hospitalist service for further evaluation and management. Initially, right- sided heart failure was suspected however was ruled out with a normal echocardiogram. Cardiology was brought on board and the cause of his symptoms are likely multifactorial. He was taken off his Norvasc and he was started on furosemide. He was diuresed over the course of his 2 night admission. No protein noted in his urine making nephrotic syndrome less likely. Cortisol and parathyroid hormones unremarkable. TSH normal. We attempted to requalify him for BiPAP overnight however he did not qualify. He did not desaturate for longer than 34 seconds and 5 minutes as needed for requirement. Also attempted to obtain his ABGs however he refused to have them drawn. Also in review of his chart, there is no evidence that the patient has gained 30 pounds but in review of his prior weights, he gained 10-12 pounds over an extended period of time. He was weaned to room air shortly after admission and on day of discharge , he denied shortness of breath above his norm. He states he has been abstinent from illicit drugs 2 years. He was noted to be smoking cigarettes in his room while he was admitted. Lengthy history of noncompliance. While he states that he and his were very scared that his sleep apnea appears to have gotten worse, he was already showing signs that he was not to be compliant. He stated and he did expedite his discharge so he could go "drink everything." This was shortly after he was educated on a fluid restricted diet. He also readily states he is not due to be compliant with a sodium restricted diet. We attempted to continually educated him throughout this admission. He was not receptive to our teaching. All in all, his pedal edema resolved as did his shortness of breath and dyspnea on exertion. He was discharged home in stable condition with close outpatient follow-up highly recommended. Recommend formal outpatient sleep study. ITS Impressions Chest X-Ray 08/10/16 15:47 IMPRESSION: No acute findings D/ / Doris Emery MD / Doris Emery MD Interpreting Provider: Doris Emery MD Echocardiogram impressions: LVEF 60%. Normal left ventricular size and systolic function. Normal diastolic function of the left ventricle. Normal rectal ventricular size and function. No significant valvular dysfunction. No pulmonary hypertension. - Time Spent with Patient Total time spent providing and/or coordinating discharge services: - Constitutional Vitals: Temp Pulse Resp BP Pulse Ox 97.4 F L 64 18 117/72 96 08/13/16 10:45 08/13/16 10:45 08/13/16 10:45 08/13/16 10:45 08/13/16 10:45 General appearance: Present: cooperative, A&O X 3, no acute distress, obese, answers questions appropriately - Head Head exam: Present: atraumatic, normocephalic - Eye Eye exam: Present: PERRL, conjuntiva pink, sclera anicteric Pupils: Present: PERRL - Neck Neck exam general surgery: Present: supple, trachea midline. Absent: lymphadenopathy - Respiratory Respiratory exam: Present: CTAB. Absent: accessory muscle use, rales, respiratory distress, rhonchi, wheezes - Cardiovascular Cardiovascular exam: Present: RRR, +S1, +S2. Absent: diastolic murmur, gallop, rubs, systolic murmur - GI/Abdominal GI/Abdominal exam: Present: distended, normal bowel sounds, soft, no peritoneal signs. Absent: tenderness - Extremities Exam Extremities exam: Present: warm, radial pulses palpable and symetrical. Absent : calf tenderness, cyanotic, pedal edema - Neurological Exam Neurological exam: Present: alert, CN II-XII intact, normal gait, oriented X3, no focal deficits, strengths equal and symetr throughout. Absent: pronater drift, facial droop, speech deficit - Skin Skin exam: Present: dry, intact, normal color, warm
== END 2016-08-13 13:41 | disposition home or self-care (01) | DRG 203 ==
LOC: 3BNU 14:30 → EMEROO 14:30 → 3BNU 20:05
PROVIDERS: ADMIT Nurse Practitioner Family; ATTEND Nurse Practitioner Family